=== PATIENT | male | born 1955 | race Caucasian/White ===

== ENCOUNTER 2023-06-02 22:04 | Observation (INO) ==
[2023-06-02] MEDS ORDERED: IOPAMIDOL 100 ML BOTTLE IV ONE (22:05)
[2023-06-02] MEDS: morphine 4 MG/ML VIAL IV PRN (22:50)
[2023-06-02 23:00] LABS: Basophils # (Auto) 0.03 K/mcL (0.00-0.30); Basophils % (Auto) 0.3 % (0.0-2.0); Eosinophils # (Auto) 0.18 K/mcL (0.00-0.70); Hematocrit 48.5 % (40.1-51.0); Hemoglobin 15.6 g/dL (13.7-17.5); Lymphocytes # (Auto) 1.12 K/mcL (1.50-4.80); Lymphocytes % (Auto) 12.4 % (15.5-49.0); Mean Cell Volume 101.5 fL (80.0-100.0); Mean Corpuscular HGB Conc 32.2 g/dL (31.0-36.0); Monocytes # (Auto) 0.98 K/mcL (0.10-0.90); Monocytes % (Auto) 10.8 % (1.0-12.0); Neutrophils % (Auto) 74.4 % (38.0-78.0); Platelet Count 235 K/mcL (140-440); RBC 4.78 M/mcL (4.63-6.08); WBC 9.1 K/mcL (4.5-11.0)
[2023-06-02 23:18] LABS: ALT/SGPT 14 U/L (<40); AST/SGOT 27 U/L (<40); Albumin 3.8 gm/dL (3.2-5.2); Albumin/Globulin Ratio 1.5 (1.0-2.3); Alkaline Phosphatase 92 U/L (39-117); Bilirubin,Total < 0.2 mg/dL (0.1-1.0); Blood Urea Nitrogen 16 mg/dL (8-23); Calcium 8.8 mg/dL (8.6-10.4); Carbon Dioxide 29 mmol/L (22-30); Chloride 105 mmol/L (96-108); Globulin 2.6 gm/dL (2.2-3.7); Glomerular Filtration Rate 87; Glucose 136 mg/dL (70-105)
[2023-06-02] MEDS: IPRATROPIUM/ALBUTEROL 3 ML AMPUL.NEB NEB ONE (23:40)
[2023-06-03 00:16] LABS: INR 0.9 (0.9-1.1)
[2023-06-03] MEDS: KETOROLAC 15 MG/ML VIAL IV SCH (02:30)
[2023-06-03] MEDS: DEXTROSE 5%-LR 1,000 ML IV SCH ×2 (02:31→10:16)
[2023-06-03] MEDS: HYDROmorphone 0.5 MG/0.5 ML SYRINGE IV PRN (03:53)
[2023-06-03 06:46] LABS: Hematocrit 47.6 % (40.1-51.0); Mean Cell Volume 104.8 fL (80.0-100.0); Mean Corpuscular HGB Conc 31.5 g/dL (31.0-36.0); Platelet Count 205 K/mcL (140-440); RBC 4.54 M/mcL (4.63-6.08); Red Cell Distribution Width 13.2 % (11.5-14.5); WBC 8.5 K/mcL (4.5-11.0)
[2023-06-03 07:15] LABS: Blood Urea Nitrogen 15 mg/dL (8-23); Calcium 8.8 mg/dL (8.6-10.4); Carbon Dioxide 28 mmol/L (22-30); Chloride 104 mmol/L (96-108); Glomerular Filtration Rate 92; Glucose 125 mg/dL (70-105)
[2023-06-03] MEDS: NICOTINE 21 MG PATCH TOPICAL SCH (09:49)
[2023-06-03] MEDS: IPRATROPIUM/ALBUTEROL 3 ML AMPUL.NEB NEB PRN (17:21)
[2023-06-03] MEDS ORDERED: ACETAMINOPHEN 1,000 MG/100 ML BAG IV PRN (22:00)
[2023-06-03] MEDS: IPRATROPIUM/ALBUTEROL 3 ML AMPUL.NEB NEB ONE (22:57)
[2023-06-04 06:37] LABS: Hematocrit 47.6 % (40.1-51.0); Hemoglobin 15.4 g/dL (13.7-17.5); Mean Cell Volume 101.5 fL (80.0-100.0); Mean Corpuscular HGB Conc 32.4 g/dL (31.0-36.0); Mean Platelet Volume 10.2 fL (8.8-12.5); Platelet Count 197 K/mcL (140-440); RBC 4.69 M/mcL (4.63-6.08); Red Cell Distribution Width 12.3 % (11.5-14.5); WBC 14.1 K/mcL (4.5-11.0)
[2023-06-04 07:02] LABS: Blood Urea Nitrogen 5 mg/dL (8-23); Carbon Dioxide 29 mmol/L (22-30); Chloride 98 mmol/L (96-108); Glomerular Filtration Rate 103; Glucose 142 mg/dL (70-105)
[2023-06-04] MEDS: traMADol 50 MG TABLET PO PRN (07:55)
== END 2023-06-04 18:55 | disposition home or self-care (01) ==
LOC: ED 22:04 → MEDSUR 22:04
PROVIDERS: ADMIT Surgery Surgical Critical Care; ATTEND Surgery Surgical Critical Care